=== PATIENT | male | born 1975 | race African-American/Black ===

== ENCOUNTER 2017-01-25 06:20 | Day surgery (SDC) | payer OTHER ==
[~2017-01-25] VITALS: Ht 188 cm; Wt 102.4 kg
[2017-01-25] VITALS (9 sets, daily range): BP systolic 126–159; BP diastolic 69–84; PULSE 72–82; RESP 13–30; Ht 188 cm; Wt 102.4 kg
[2017-01-25] MEDS ORDERED: BUPIVACAINE 0.25% (MPF) 30 ML INJ ONE (06:50)
[2017-01-25] MEDS ORDERED: LIDOCAINE 1%/EPI 30 ML INJ ONE (06:50)
[2017-01-25] MEDS ORDERED: LIDOCAINE 1% (STERILE-PAK) 30 ML INJ ONE (06:50)
[2017-01-25] MEDS ORDERED: BUPIVACAINE 0.25%/EPI (SDV) 30 ML INJ ONE (06:51)
[2017-01-25] MEDS ORDERED: CEFAZOLIN 1 GM INJ ONE (07:19)
[2017-01-25] MEDS ORDERED: FENTAnyl 50 MCG/ML VIAL ONE (07:19)
[2017-01-25] MEDS ORDERED: MIDAZOLAM 1 MG/ML 2 ML INJ ONE (07:19)
[2017-01-25] MEDS ORDERED: PROPOFOL 20 ML ONE ×2 (07:19→08:04)
--- NOTE | 2017-01-25 07:31 | HPN ---
Date/Time of Note Date/Time of Note DATE: 01/25/17 TIME: 07:31 Interval H&P Admission Note Pt. seen H&P reviewed: No system changes NIMESH BOGGS MD Jan 25, 2017 07:31
[2017-01-25] MEDS ORDERED: EPHEDrine SULFATE 50 MG/5 ML SYG IV PRN (08:00)
[2017-01-25] MEDS ORDERED: HYDROmorphONE (0.2 MG/ML) 10ML SYG IV PRN ×3 (08:00)
[2017-01-25] MEDS ORDERED: METOCLOPRAMIDE 10 MG INJ IV PRN (08:00)
[2017-01-25] MEDS ORDERED: DIPHENHYDRAMINE 50 MG INJ IV PRN (08:00)
[2017-01-25] MEDS ORDERED: ONDANSETRON 4 MG INJ IV PRN ×2 (08:00→08:30)
[2017-01-25] MEDS ORDERED: hydrALAzine 20 MG INJ IV PRN (08:00)
[2017-01-25] MEDS ORDERED: MEPERIDINE 25 MG INJ IV PRN (08:00)
[2017-01-25] MEDS ORDERED: LABETALOL HCL 20MG INJ IV PRN (08:00)
[2017-01-25] MEDS ORDERED: morphine (1 MG/ML) 10ML SYRINGE IV PRN ×3 (08:00)
[2017-01-25] MEDS ORDERED: METOCLOPRAMIDE 10 MG INJ ONE (08:03)
[2017-01-25] MEDS ORDERED: KETOROLAC 30 MG INJ ONE (08:03)
[2017-01-25] MEDS ORDERED: ONDANSETRON 4 MG INJ ONE (08:03)
[2017-01-25] MEDS ORDERED: DEXAMETHASONE 4 MG/ML 1 ML INJ ONE (08:03)
[2017-01-25] MEDS ORDERED: OXYCODONE/ACETAMINOPHEN (5/325) TAB PO PRN ×2 (08:30)
[2017-01-25] MEDS ORDERED: morphine 2 MG INJ IV PRN (08:30)
--- NOTE | 2017-01-25 08:59 | OPR ---
DATE OF OPERATION: 01/25/2017 PREOPERATIVE DIAGNOSIS: 2-cm subcutaneous mass, right upper extremity. PROCEDURE: Excision. POSTOPERATIVE DIAGNOSIS: Lipoma. Pathology pending. SURGEON: Nimesh Rai MD ANESTHESIA: General. ANESTHESIOLOGIST: OPERATIVE REPORT: After satisfactory general anesthesia was achieved, the right upper extremity was prepped and draped in the usual fashion. A 2.5-cm vertical skin incision was made above the right biceps. Immediately subcutaneous was encountered a 2-cm lipoma. This was dissected out with gentle sharp and blunt dissection and delivered in its entirety and submitted. Hemostasis was achieved wi th electrocautery. The wound was infiltrated with 10 mL of 0.25% plain Marcaine. The subcutaneous was closed with 3-0 Vicryl and the skin was closed with running subcuticular 3-0 Vicryl. OPERATIVE BLOOD LOSS: Less than 2 mL. Sponge and needle counts were reported as correct x2. The patient tolerated the procedure well and without incident or complication. Dictated By: NIMESH ROJAS/STACY Conf#: [id number] DID#: [id number] CC: JUAN C NUGENT MD;*EndCC*
== END 2017-01-25 09:55 | disposition home or self-care (01) ==
LOC: SDS 06:20
PROVIDERS: ATTEND Surgery
DX: D17.21 Benign lipomatous neoplasm of skin and subcutaneous tissue of right arm (principal)
CPT/HCPCS: 11403; 88307; J0690; J1100; J1885; J2250; J2405; J2765; J3010; Z7512; Z7610